=== PATIENT | male | born 1955 | race Caucasian/White ===

== ENCOUNTER 2016-11-20 12:25 | Outpatient (CLI) ==
[2016-11-20 13:05] LABS: BASOPHILS # (AUTO) 0.1 K/uL (0-0.2); BASOPHILS % (AUTO) 0.9 % (0.0-3.0); EOSINOPHILS # (AUTO) 0.2 K/ul (0.0-0.7); EOSINOPHILS % (AUTO) 4.3 % (0.0-7.0); HEMATOCRIT 39.4 % (42.0-52.0); HEMOGLOBIN 14.1 g/dl (14.0-18.0); IMMATURE GRANULOCYTE % (AUTO) 0.2 % (0.0-5.0); LYMPHOCYTES # (AUTO) 1.3 K/uL (0.60-3.4); MEAN CORPUSCULAR HEMOGLOBIN 31.1 pg (27.0-31.0); MEAN CORPUSCULAR HGB CONC 35.8 (31.8-35.4); MONOCYTES # (AUTO) 0.4 K/uL (0.4-2.0); MONOCYTES % (AUTO) 7.6 (0-10); NEUTROPHILS # (AUTO) 3.4 K/ul (2.0-6.9); PLATELET COUNT 293 10^3/uL (140-440); RED BLOOD COUNT 4.53 10^6/ul (4.70-6.10); WHITE BLOOD COUNT 5.41 K/ul (4.2-10.2)
[2016-11-20 13:15] LABS: ALBUMIN 3.7 g/dL (3.4-5.0); ALBUMIN/GLOBULIN RATIO 1.23; ANION GAP 15.5; BILIRUBIN,TOTAL 0.51 mg/dL (0.00-1.20); BUN/CREATININE RATIO 11.9; CALCIUM 9.6 mg/dL (8.2-10.2); CHOL/HDL RATIO 2.3 (4.5-6.4); CREATININE 1.26 mg/dL (0.60-1.10); POTASSIUM 4.5 mmol/L (3.5-5.1); TOTAL PROTEIN 6.7 g/dL (6.4-8.2)
== END 2016-11-20 12:26 | disposition home or self-care (01) ==
LOC: LAB 12:25
PROVIDERS: ATTEND Emergency Medicine
DX: E78.5 Hyperlipidemia, unspecified (principal); L03.90 Cellulitis, unspecified
CPT/HCPCS: 36415; 80053; 80061; 84443; 85025

== ENCOUNTER 2017-05-22 09:19 | Outpatient (CLI) | END 2017-05-22 09:20 | disposition home or self-care (01) | LOC: LAB 09:19 | PROVIDERS: ATTEND Emergency Medicine | DX: E78.5 Hyperlipidemia, unspecified (principal); F90.8 Attention-deficit hyperactivity disorder, other type | CPT/HCPCS: 36415; 80053; 80061; 84443; 85025 ==

== ENCOUNTER 2017-09-18 12:09 | Outpatient (CLI) | END 2017-09-18 12:10 | disposition home or self-care (01) | LOC: RHC-LAB 12:09 | PROVIDERS: ATTEND Emergency Medicine | DX: D50.8 Other iron deficiency anemias (principal) | CPT/HCPCS: 36415; 85025 ==

== ENCOUNTER 2017-12-14 10:16 | Outpatient (CLI) | END 2017-12-14 10:17 | disposition home or self-care (01) | LOC: RHC-LAB 10:16 | PROVIDERS: ATTEND Emergency Medicine | DX: E78.5 Hyperlipidemia, unspecified (principal); F33.0 Major depressive disorder, recurrent, mild; F90.8 Attention-deficit hyperactivity disorder, other type | CPT/HCPCS: 36415; 80053; 80061; 84443; 85025 ==

== ENCOUNTER 2018-03-25 14:15 | Outpatient (CLI) | END 2018-03-25 14:16 | disposition home or self-care (01) | LOC: FCC-LAB 14:15 | PROVIDERS: ATTEND Family Medicine | DX: T81.30XA Disruption of wound, unspecified, initial encounter (principal) | CPT/HCPCS: 87070 ==

== ENCOUNTER 2018-06-28 13:09 | Outpatient (CLI) | END 2018-06-28 13:10 | disposition home or self-care (01) | LOC: RHC-LAB 13:09 → FCC-LAB 13:10 | PROVIDERS: ATTEND Family Medicine | DX: Z00.00 Encounter for general adult medical examination without abnormal findings (principal); Z12.5 Encounter for screening for malignant neoplasm of prostate | CPT/HCPCS: 36415; 80053; 80061; 85025 ==